=== PATIENT | female | born 1990 | race American Indian/Alaskan Native ===

== ENCOUNTER 2018-05-22 19:04 | Emergency (ER) | payer MEDICAID ==
[2018-05-22] MEDS ORDERED: HALDOL IM PRN (21:29)
[2018-05-22] MEDS ORDERED: ATIVAN IM PRN (21:29)
[2018-05-22] MEDS ORDERED: ATIVAN ONE (21:33)
[2018-05-22] MEDS ORDERED: GEODON IM ONE (22:44)
[2018-05-22 23:27] LABS: Basophils % (Auto) 0.4 % (0.0-1.8); Eosinophils # (Auto) 0.2 K/mm3 (0.0-0.4); Eosinophils % (Auto) 3.2 % (0.0-4.3); Hematocrit 40.3 % (30.3-42.9); Hemoglobin 13.4 gm/dl (10.1-14.3); Lymphocytes # (Auto) 1.1 K/mm3 (1.2-5.4); Lymphocytes % (Auto) 21.7 % (13.4-35.0); Mean Corpuscular HGB Conc 33 % (30-34); Mean Corpuscular Volume 82 fl (79-97); Monocytes # (Auto) 0.4 K/mm3 (0.0-0.8); Monocytes % (Auto) 7.9 % (0.0-7.3); Platelet Count 385 K/mm3 (140-440); Red Blood Count 4.91 M/mm3 (3.65-5.03); Red Cell Distribution Width 13.9 % (13.2-15.2)
[2018-05-22 23:37] LABS: Bilirubin,Urine NEG (Negative); Blood,Urine NEG (Negative); Color,Urine Yellow (Yellow); Mucus,Urine 1+ /HPF; Protein,Urine <15 mg/dL mg/dL (Negative); Urobilinogen,Urine < 2.0 mg/dL (<2.0)
[2018-05-22 23:41] LABS: Amphetamine Screen,Urine PRESUMPTIVE NEGATIVE; Benzodiazepines Screen,Urine PRESUMPTIVE NEGATIVE; Cocaine Screen,Urine PRESUMPTIVE NEGATIVE; Methadone Screen,Urine PRESUMPTIVE NEGATIVE; Opiate Screen,Urine PRESUMPTIVE NEGATIVE
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
[2018-05-23 00:51] LABS: Cannabinoid Screen,Urine PRESUMPTIVE POSITIVE
[2018-05-23 00:56] LABS: BUN/Creatinine Ratio 18; Blood Urea Nitrogen 11 mg/dL (7-17); Calcium 8.9 mg/dL (8.4-10.2); Hemolysis Index 2
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
[2018-05-24 18:17] VITALS: BP 121/79
--- NOTE | 2018-05-24 18:36 | Consultation ---
History of Present Illness - Reason for Consult Consult date: 05/24/18 - Chief Complaint Chief complaint: "I need to get my life together" Medications and Allergies Allergies Allergy/AdvReac Type Severity Reaction Status Date / Time peanut Allergy Anaphylaxis Verified 05/22/18 19:51 Home Medications Medication Instructions Recorded Confirmed Last Taken Type No Known Home Medications [No 05/23/18 05/23/18 Unknown History Reported Home Medications] Active Meds: Active Medications Haloperidol Lactate (Haldol) 5 mg IM Q6HR PRN PRN Reason: Agitation Last Admin: 05/22/18 21:39 Dose: 5 mg Documented by: Lorazepam (Ativan) 2 mg IM Q4HR PRN PRN Reason: Agitation Last Admin: 05/22/18 21:38 Dose: 2 mg Documented by: Mental Status Exam - Vital signs Last Vital Signs Temp 99.1 F 05/24/18 18:16 Pulse 74 05/24/18 18:16 Resp 18 05/24/18 18:16 BP 121/79 05/24/18 18:16 Pulse Ox 96 05/24/18 18:16 Results Result Diagrams: 05/22/18 23:11 05/22/18 23:11 All other labs normal.
--- NOTE | 2018-05-24 18:49 | Progress Note ---
Subjective - Reason for Consult Consult date: 05/24/18 Reason for consult: psychiatric evaluation - Chief Complaint Chief complaint: "I do have my issues but I want to go home." TE[employer] MANAGER spoke with her mother, Jessica Aguirre at [phone]. She states Jayesh takes good care of herself and her children. She does not see a reason she should not come home. She states this was an isolated incident. Jayesh states she does not want to harm himself and never did. She had an etoh level of 0.11 when she arrived. She states she does not normally drink. She is open to counseling referrals and declines medications. In addition, she is her 10 month old and needs accommodations for pumping breast milk. Mental Status Exam - Vital signs Last Vital Signs Temp 99.1 F 05/24/18 18:16 Pulse 74 05/24/18 18:16 Resp 18 05/24/18 18:16 BP 121/79 05/24/18 18:16 Pulse Ox 96 05/24/18 18:16 Assessment and Plan MSE: Appearance: calm Behavior: regular eye contact Speech: regular rate and loud tone Mood: "okay" Affect: appropriate Thought Process: linear and logical Thought Content: denies SI/HI's and AVH's Motor Activity: sitting up in bed Cognition: A/O x 3 Insight: good Judgment: fair Assessment and plan: Impression: MDD. Alcohol Intoxication.-resolved Cannabis use. Today the patient is calm during the assessment and continues to deny suicidal ideation. No acute safety concerns identified. The precipitating situation has resolved. She was intoxicated with alcohol at the time of the incident. She denies frequent alcohol use. She is sober now and maintains denial of any thoughts of self harm/suicide. Her mother expressed she would pick Jayesh up from the hospital and make sure she went for outpatient counseling as soon as possible. Jayesh is open to counseling referrals. DDx: Substance Induced Mood DO Recommendation/Plan: Rescind 1013 Dispo: recommend outpatient counseling. Referrals provided Staffed with Dwayne.
== END 2018-05-24 20:37 | disposition home or self-care (01) ==
LOC: ED 19:04
DX: F32.9 Major depressive disorder, single episode, unspecified (principal); F10.129 Alcohol abuse with intoxication, unspecified
CPT/HCPCS: 36415; 80048; 80307; 81001; 82550; 84703; 85025; 96372; 99284; G0480; J1630; J2060; J3486; 80320